=== PATIENT | male | born 1935 | race Caucasian/White ===

== ENCOUNTER 2016-09-24 09:45 | Day surgery (SDC) | payer OTHER, BC ==
[2016-09-24 10:44] VITALS: TEMP 97.8; BMI 22.2
[2016-09-24] MEDS ORDERED: PROPOFOL 20 ML ONE (11:32)
[2016-09-24 11:58] VITALS: PULSE 53
[2016-09-24 13:48] VITALS: BP 156/65
== END 2016-09-24 12:45 | disposition home or self-care (01) ==
LOC: JASU-ENDO 09:45 → JASU-SURG 09:45 → JASU-ENDO 12:45
PROVIDERS: ATTEND Internal Medicine Cardiovascular Disease
PROC: B246ZZ4 Ultrasonography of Right and Left Heart, Transesophageal (ICD-10-PCS; principal; 2016-09-24 11:30)
DX: I34.0 Nonrheumatic mitral (valve) insufficiency (principal)
CPT/HCPCS: 93312; 93325